=== PATIENT | male | born 1960 | race African-American/Black ===

== ENCOUNTER 2016-08-15 09:42 | Emergency (ER) | payer SELFPAY ==
[2016-08-15] MEDS ORDERED: SODIUM CHLORIDE 0.9% 1,000 ML IV ONE (10:40)
[2016-08-15] MEDS ORDERED: ONDANSETRON 4 MG/2 ML VIAL IVP STA (10:40)
[2016-08-15] MEDS ORDERED: ONDANSETRON 4 MG/2 ML VIAL ONE (10:53)
== END 2016-08-15 12:27 | disposition home or self-care (01) ==
DX: E86.0 Dehydration (principal); K52.9 Noninfective gastroenteritis and colitis, unspecified; R55 Syncope and collapse; I10 Essential (primary) hypertension; I25.2 Old myocardial infarction; F17.200 Nicotine dependence, unspecified, uncomplicated